=== PATIENT | male | born 1945 | race Caucasian/White ===

== ENCOUNTER 2021-05-11 22:22 | Emergency (ER) | payer MEDICARE, BC ==
[2021-05-11] MEDS ORDERED: predniSONE 20 MG Tab PO ONE (23:00)
[2021-05-11] MEDS ORDERED: hydrOXYzine HCl 25 MG Tab PO ONE (23:01)
--- NOTE | 2021-05-11 23:08 | EDM.PDOC ---
ED HPI GENERAL MEDICAL PROBLEM - General Stated Complaint: rash Time Seen by Provider: 05/11/21 22:44 Source of Information: Reports: Patient - History of Present Illness INITIAL COMMENTS - FREE TEXT/NARRATIVE: Brent is a 76 y/o male who presents to the ER with complaints of a rash on his hands and now up his right arm. He has been struggling with this issue ever since he started to use hand supervisor hard candy frequently. He got a rash and then has used a variety of OTC lotions and creams along with Cortisone 10 and Vaseline. He wears nitrile gloves over the Vaseline to allow it to soak in a couple hours then he wears cotton gloves to bed. Tonight he cannot stand the itching and discomfort. He does have a dermatology appt in Wednesday, but could not stand it anymore. - Related Data Allergies Allergy/AdvReac Type Severity Reaction Status Date / Time lisinopril Allergy Cough Verified 09/21/19 06:58 Apztjor-Aqw-Kxe Reductase Allergy Other Verified 09/21/19 06:58 Inhibitor Home Meds: Home Meds Aspirin [Ecotrin] 81 mg PO DAILY 11/21/13 [History] Atenolol/Chlorthalidone [Tenoretic 50] 1 tab PO DAILY 11/21/13 [History] Fenofibrate,Micronized [Fenofibrate] 134 mg PO DAILY 11/21/13 [History] Naproxen Sodium 220 mg PO DAILY 11/21/13 [History] Sildenafil [Viagra] 1 - 2 tab-cap PO DAILY PRN 11/21/13 [History] Losartan [Cozaar] 50 mg PO DAILY 09/12/19 [History] Rosuvastatin [Crestor] 5 mg PO DAILY 09/12/19 [History] hydrOXYzine HCL [Atarax] 25 - 50 mg PO Q6H PRN #30 tab 05/11/21 [Rx] methylPREDNISolone [Medrol Dose Pack] 4 mg PO ASDIRECTED #21 dospk 05/11/21 [Rx] Past Medical History HEENT History: Reports: Allergic Rhinitis, Hard of Hearing, Other (See Below) Other HEENT History: dysfunctional eustachian tube. deviated nasal septum Cardiovascular History: Reports: High Cholesterol, Hypertension Gastrointestinal History: Reports: Other (See Below) Other Gastrointestinal History: hx of perianal abcess Genitourinary History: Reports: Other (See Below) Other Genitourinary History: hydrocele Musculoskeletal History: Reports: Osteoarthritis, Other (See Below) Other Musculoskeletal History: scapholunate advanced collapse of wrist Neurological History: Reports: Other (See Below) Other Neuro History: hx of agent orage exposure Other Psychiatric History: psychosexual dysfunction Oncologic (Cancer) History: Reports: Prostate - Past Surgical History GI Surgical History: Reports: Appendectomy, Colonoscopy Other GI Surgeries/Procedures: fistulotomy. perianal abcess Other Female Surgeries/Procedures: hydrocele spermatocele Male Surgical History: Reports: Vasectomy, Other (See Below) Musculoskeletal Surgical History: Reports: Joint Replacement Other Musculoskeletal Surgeries/Procedures:: Right STEPHANIE Social & Family History - Caffeine Use Caffeine Use: Reports: Coffee Review of Systems - Review of Systems Review Of Systems: See Below Constitutional: Reports: No Symptoms Eyes: Reports: No Symptoms Ears: Reports: No Symptoms Nose: Reports: No Symptoms Mouth/Throat: Reports: No Symptoms Respiratory: Reports: No Symptoms Cardiovascular: Reports: No Symptoms GI/Abdominal: Reports: No Symptoms Genitourinary: Reports: No Symptoms Musculoskeletal: Reports: No Symptoms Skin: Reports: Pruritis, Rash, Other (Both hands) Neurological: Reports: No Symptoms Psychiatric: Reports: No Symptoms ED EXAM, GENERAL - Physical Exam Exam: See Below General Appearance: Alert, WD/WN, No Apparent Distress (Elderly male) Ears: Hearing Grossly Normal Head: Atraumatic Respiratory/Chest: No Respiratory Distress GI/Abdominal: Soft (Male) Exam: Deferred Rectal (Males) Exam: Deferred Extremities: Other (Note redness to both hands just where gloves are on, some skin appears to be sloughing off and there are several fissues in regions around fingernails, note atopic rash on an erytheamtous base on the posterior aspect of the right forearm) Neurological: Alert, Oriented, CN II-XII Intact Psychiatric: Normal Affect Skin Exam: Warm, Dry Course - Vital Signs Text/Narrative:: [id number] The patient was seen by the CURING ROOM WORKER. Patient brought in a tube of Clobetasol that he had from [facility] for another issue. Will have him use the Clobetasol 2x a day to the affected areas. Will also give him Hydroxyzine to sleep tonight and Prednisone 40mg po in the ER and have him start a Medrol Dose pack tomorrow. Discussed skin care with him. Suspect Contact dermatitis with unknown agent, but aggravated by the fact that the patient admits to using the same pair of nitrile gloves over and over for 1 week at a time. Advised not to partake in this practice anymore. He was given written instructions and left the ER in stable condition. - Orders/Labs/Meds Meds: Medications Discontinued Medications Generic Name Dose Route Start Last Admin Trade Name Freq PRN Reason Stop Dose Admin Hydroxyzine HCl 50 mg 05/11/21 23:01 Hydroxyzine Hcl 25 Mg Tab PO 05/11/21 23:02 ONETIME ONE Prednisone 40 mg 05/11/21 23:00 Prednisone 20 Mg Tab PO 05/11/21 23:01 ONETIME ONE Departure - Departure Time of Disposition: 23:07 Disposition: Home, Self-Care 01 Condition: Good Clinical Impression: Contact dermatitis Qualifiers: Contact dermatitis type: unspecified Contact dermatitis trigger: unspecified trigger Qualified Code(s): L25.9 - Unspecified contact dermatitis, unspecified cause - Discharge Information Prescriptions: hydrOXYzine HCL [Atarax] 25 - 50 mg PO Q6H PRN #30 tab PRN Reason: Itching methylPREDNISolone [Medrol Dose Pack] 4 mg PO ASDIRECTED #21 dospk Instructions: Contact Dermatitis Referrals: Jass Perez PA-C [Primary Care Provider] - Additional Instructions: -Hydroxyzine 25-50mg oral every 6 hours as needed #30 (Rx) -Medrol Dose Pack 4mg oral as directed #21(Rx) -Use the Clobetasol cream that you have at home twice daily on your hands and affected areas. -Use non-scented lotion or soaps. -Keep the appt you have with Dermatology on Wednesday -Return as needed to ER -
== END 2021-05-11 23:30 | disposition home or self-care (01) ==
LOC: VM.ED 22:22
DX: L25.9 Unspecified contact dermatitis, unspecified cause (principal); E78.00 Pure hypercholesterolemia, unspecified; I10 Essential (primary) hypertension; Z79.899 Other long term (current) drug therapy; Z88.8 Allergy status to other drugs, medicaments and biological substances
CPT/HCPCS: 99283; A9270-GY; J7512

== ENCOUNTER 2024-09-01 18:55 | Inpatient (IN) | payer MEDICARE, BC ==
[2024-09-01] MEDS ORDERED: Sodium Chloride 0.9% 10 ML Syringe FLUSH PRN (19:15)
[2024-09-01 19:29] LABS: BASOPHILS PERCENT AUTO 0.1 % (0.2-1.2); EOSINOPHILS PERCENT AUTO 0.1 % (0.0-4.0); HEMATOCRIT 43.5 % (40.0-52.0); HEMOGLOBIN 15.5 g/dL (14.0-18.0); IMMATURE GRAN ABSOLUTE AUTO 0.02 x10^3/uL (0.00-0.07); LYMPHOCYTES ABSOLUTE AUTO 0.5 x10^3/uL (1.0-4.8); LYMPHOCYTES PERCENT AUTO 3.7 % (25.0-50.0); MEAN CORPUSCULAR HEMOGLOBIN 32.5 pg (26.0-32.0); MEAN CORPUSCULAR HGB CONC 35.6 g/dL (32.0-36.0); MEAN CORPUSCULAR VOLUME 91.2 fL (78.0-93.0); MONOCYTES ABSOLUTE AUTO 0.6 x10^3/uL (0.0-0.8); NEUTROPHILS ABSOLUTE AUTO 12.8 x10^3/uL (1.8-7.7); PLATELET COUNT,PLT 227 x10^3/uL (130-400); RED BLOOD CELL COUNT 4.77 x10^6/uL (4.5-6.0)
[2024-09-01 19:34] LABS: WHITE BLOOD CELL COUNT,WBC 13.9 x10^3/uL (4.0-10.0)
[2024-09-01 19:50] LABS: A/G RATIO 0.97; ALANINE AMINOTRANSFERASE,ALT 31 U/L (16-63); ALBUMIN 3.3 g/dL (3.4-5.0); ALKALINE PHOSPHATASE 64 U/L (46-116); ASPARTATE AMNIOTRANSFERASE,AST 23 U/L (15-37); BILIRUBIN TOTAL 0.9 mg/dL (0.2-1.0); BLOOD UREA NITROGEN,BUN 11 mg/dL (7-18); CALCIUM 9.7 mg/dL (8.5-10.1); CARBON DIOXIDE,CO2 29 mmol/L (21-32); CHLORIDE,CL 97 mmol/L (98-107); CREATININE 0.9 mg/dL (0.70-1.30); GLUCOSE RANDOM 123 mg/dL (70-99); MAGNESIUM 1.4 mg/dL (1.8-2.4); PROTEIN TOTAL,TP 6.7 g/dL (6.4-8.2); SODIUM,NA 137 mmol/L (136-145)
[2024-09-01 19:53] LABS: LACTIC ACID 1.1 mmol/L (0.4-2.0)
[2024-09-01 19:57] LABS: ANION GAP 13.7 mmol/L (5-15); ESTIMATED GFR 88 mL/min (>=60); POTASSIUM,K 2.7 mmol/L (3.5-5.1)
[2024-09-01] MEDS: Iopamidol 612 MG/ML 100 ML Bottle IVPUSH ONE (20:30)
[2024-09-01] MEDS: NS with KCl 40mEq 1,000 ML IV SCH (20:47)
[2024-09-01] MEDS: HYDROmorphone 0.5 MG/0.5 ML Syringe IVPUSH ONE ×2 (20:50→21:03)
[2024-09-01] MEDS: Piperacillin/Tazobactam 4.5 GM in Sodium Chloride 0.9% 100 ML IV ONE (21:20)
[2024-09-02] MEDS ORDERED: Ondansetron 4 MG/2 ML SDV IV PRN (00:14)
[2024-09-02] MEDS: HYDROmorphone 0.5 MG/0.5 ML Syringe IVPUSH PRN (00:34)
[2024-09-02] MEDS: Pantoprazole 40 MG in Sodium Chloride 0.9% 100 ML IV SCH (01:31)
[2024-09-02] MEDS: Magnesium Sulfate/Water Premix 2 GM in Premix Bag 1 BAG IV ONE (02:41)
[2024-09-02] MEDS ORDERED: hydrALAZINE 20 MG/ML SDV IVPUSH PRN (03:39)
[2024-09-02] MEDS: Piperacillin/Tazobactam 4.5 GM in Sodium Chloride 0.9% 100 ML IV SCH (05:21)
[2024-09-02 07:59] LABS: BASOPHILS PERCENT AUTO 0.1 % (0.2-1.2); EOSINOPHILS PERCENT AUTO 0.1 % (0.0-4.0); HEMATOCRIT 43.1 % (40.0-52.0); HEMOGLOBIN 14.8 g/dL (14.0-18.0); LYMPHOCYTES ABSOLUTE AUTO 0.6 x10^3/uL (1.0-4.8); MEAN CORPUSCULAR HGB CONC 34.3 g/dL (32.0-36.0); MEAN CORPUSCULAR VOLUME 93.3 fL (78.0-93.0); MONOCYTES ABSOLUTE AUTO 0.6 x10^3/uL (0.0-0.8); MONOCYTES PERCENT AUTO 4.2 % (2.0-11.0); NEUTROPHILS ABSOLUTE AUTO 12.7 x10^3/uL (1.8-7.7); NEUTROPHILS PERCENT AUTO 90.7 % (50.0-80.0); PLATELET COUNT,PLT 226 x10^3/uL (130-400); RED BLOOD CELL COUNT 4.62 x10^6/uL (4.5-6.0)
[2024-09-02 08:14] LABS: CALCIUM 8.9 mg/dL (8.5-10.1); CREATININE 0.9 mg/dL (0.70-1.30); EST CRCL DRUG DOSING (CG) 70.97 mL/min; MAGNESIUM 1.9 mg/dL (1.8-2.4); POTASSIUM,K 3.4 mmol/L (3.5-5.1)
[2024-09-02 08:15] LABS: LYMPHOCYTES PERCENT AUTO 4.2 % (25.0-50.0)
[2024-09-02 08:16] LABS: ANION GAP 14.4 mmol/L (5-15)
[2024-09-02] MEDS ORDERED: NS with KCl 40mEq 1,000 ML IV SCH (08:45)
[2024-09-02] MEDS: Potassium Chloride Riders 10 MEQ in Premix Bag 1 BAG IV ONE (09:05)
== END 2024-09-02 11:30 | disposition short-term general hospital (02) | DRG 380 ==
LOC: VM.ED 18:55 → VM.MS 22:35
PROVIDERS: ADMIT Internal Medicine; ATTEND Family Medicine
DX: K26.1 Acute duodenal ulcer with perforation (principal); K26.5 Chronic or unspecified duodenal ulcer with perforation; M19.90 Unspecified osteoarthritis, unspecified site; K65.9 Peritonitis, unspecified; I10 Essential (primary) hypertension; E78.00 Pure hypercholesterolemia, unspecified; H91.90 Unspecified hearing loss, unspecified ear; Z90.49 Acquired absence of other specified parts of digestive tract; E87.6 Hypokalemia; E83.42 Hypomagnesemia; D72.829 Elevated white blood cell count, unspecified; Z88.8 Allergy status to other drugs, medicaments and biological substances; Z98.52 Vasectomy status; Z90.89 Acquired absence of other organs; Z79.82 Long term (current) use of aspirin; Z79.899 Other long term (current) drug therapy; Z96.649 Presence of unspecified artificial hip joint; Z86.0100 Personal history of colon polyps, unspecified
CPT/HCPCS: 36415; 74022; 74177; 80048; 80053; 83605; 83690; 83735; 85025; 86140; 96365; 96375; 99223; 99223-GT; 99284; 99285-25; J1171; J2470; J2543; J3475; J3480; J3490; Q9967

== ENCOUNTER 2024-09-07 20:25 | Emergency (ER) | payer MEDICARE, BC ==
[2024-09-07] MEDS: fentaNYL 100 MCG/2 ML SDV IVPUSH ONE ×3 (20:36→22:35)
[2024-09-07] MEDS ORDERED: Sodium Chloride 0.9% 10 ML Syringe FLUSH PRN (20:44)
[2024-09-07 20:52] LABS: BASOPHILS PERCENT AUTO 0.3 % (0.2-1.2); EOSINOPHILS ABSOLUTE AUTO 0.3 x10^3/uL (0.0-0.5); EOSINOPHILS PERCENT AUTO 3.7 % (0.0-4.0); HEMATOCRIT 40.5 % (40.0-52.0); HEMOGLOBIN 14.3 g/dL (14.0-18.0); IMMATURE GRAN ABSOLUTE AUTO 0.09 x10^3/uL (0.00-0.07); LYMPHOCYTES ABSOLUTE AUTO 1.6 x10^3/uL (1.0-4.8); LYMPHOCYTES PERCENT AUTO 22.2 % (25.0-50.0); MEAN CORPUSCULAR HEMOGLOBIN 31.9 pg (26.0-32.0); MEAN CORPUSCULAR HGB CONC 35.3 g/dL (32.0-36.0); MEAN CORPUSCULAR VOLUME 90.4 fL (78.0-93.0); MONOCYTES PERCENT AUTO 13.9 % (2.0-11.0); NEUTROPHILS ABSOLUTE AUTO 4.3 x10^3/uL (1.8-7.7); NEUTROPHILS PERCENT AUTO 58.7 % (50.0-80.0); PLATELET COUNT,PLT 402 x10^3/uL (130-400); RED BLOOD CELL COUNT 4.48 x10^6/uL (4.5-6.0); WHITE BLOOD CELL COUNT,WBC 7.3 x10^3/uL (4.0-10.0)
[2024-09-07] MEDS: HYDROmorphone 0.5 MG/0.5 ML Syringe IVPUSH ONE ×2 (20:59→21:17)
[2024-09-07] MEDS ORDERED: Sodium Chloride 0.9% 500 ML IV ONE (20:59)
[2024-09-07 21:00] LABS: A/G RATIO 0.76; ALANINE AMINOTRANSFERASE,ALT 85 U/L (16-63); ALBUMIN 2.9 g/dL (3.4-5.0); ALKALINE PHOSPHATASE 77 U/L (46-116); ASPARTATE AMNIOTRANSFERASE,AST 55 U/L (15-37); BILIRUBIN TOTAL 0.6 mg/dL (0.2-1.0); BLOOD UREA NITROGEN,BUN 10 mg/dL (7-18); CALCIUM 9.9 mg/dL (8.5-10.1); CARBON DIOXIDE,CO2 24 mmol/L (21-32); CHLORIDE,CL 98 mmol/L (98-107); CREATININE 0.8 mg/dL (0.70-1.30); GLUCOSE RANDOM 126 mg/dL (70-99); PROTEIN TOTAL,TP 6.7 g/dL (6.4-8.2); SODIUM,NA 134 mmol/L (136-145)
[2024-09-07 21:01] LABS: ANION GAP 14.9 mmol/L (5-15); ESTIMATED GFR 91 mL/min (>=60); POTASSIUM,K 2.9 mmol/L (3.5-5.1)
[2024-09-07 21:03] LABS: LACTIC ACID 1.7 mmol/L (0.4-2.0)
[2024-09-07 21:17] LABS: APPEARANCE,URINE CLOUDY (CLEAR); BILIRUBIN,URINE NEGATIVE (NEGATIVE); COLOR,URINE YELLOW (YELLOW); GLUCOSE,URINE NEGATIVE (NEGATIVE); KETONES,URINE NEGATIVE (NEGATIVE); LEUKOCYTE ESTERASE,URINE NEGATIVE (NEGATIVE); NITRITE,URINE NEGATIVE (NEGATIVE); OCCULT BLOOD,URINE TRACE-LYSED (NEGATIVE); PROTEIN,URINE 100 mg/dL (NEGATIVE); UROBILINOGEN,URINE 0.2 EU/dL (0.2)
[2024-09-07] MEDS: Piperacillin/Tazobactam 4.5 GM in Sodium Chloride 0.9% 100 ML IV ONE (21:18)
[2024-09-07 21:22] LABS: RBC,URINE NOT SEEN /HPF (NOT SEEN)
[2024-09-07 21:23] LABS: AMORPHOUS SEDIMENT,URINE MANY; BACTERIA,URINE NOT SEEN /HPF (NOT SEEN); MUCUS,URINE OCCASIONAL /LPF (NOT SEEN); SQUAMOUS EPITHELIAL CELLS,UR OCCASIONAL /HPF (NOT SEEN); WBC,URINE 0-5 /HPF (NOT SEEN)
[2024-09-07] MEDS: Iopamidol 612 MG/ML 100 ML Bottle IVPUSH ONE (21:24)
[2024-09-07] MEDS: HYDROmorphone 1 MG/ML Syringe IVPUSH ONE (21:29)
[2024-09-07] MEDS ORDERED: Potassium Chloride Riders 20 MEQ in Premix Bag 1 BAG IV SCH (22:00)
[2024-09-07] MEDS: Potassium Chloride Riders 20 MEQ in Premix Bag 1 BAG IV SCH (22:44)
== END 2024-09-07 23:40 | disposition short-term general hospital (02) ==
LOC: VM.ED 20:25
DX: K26.5 Chronic or unspecified duodenal ulcer with perforation (principal); R10.84 Generalized abdominal pain; E78.00 Pure hypercholesterolemia, unspecified; I10 Essential (primary) hypertension; Z79.82 Long term (current) use of aspirin; Z79.899 Other long term (current) drug therapy; Z88.8 Allergy status to other drugs, medicaments and biological substances
CPT/HCPCS: 36415; 80053; 81001; 83605; 85025; 86140; 87040; 96365; 96375; 96376; 99285-25; J1171; J2543; J3010; J3480; J3490; Q9967